=== PATIENT | female | born 1960 | race Caucasian/White ===

== ENCOUNTER 2020-11-22 16:40 | Outpatient (CLI) | payer MEDICARE, SELFPAY ==
--- NOTE | ~2020-11-22 | DEXA_ITS ---
Bone Density Report Name: Taty Hernandez Age: 60 Sex: Female Ethnicity: White Date of : 1960 Indication: osteopenia; monitoring treatment; prior fracture; cancer; hysterectomy; postmenopausal Referring Provider: HEATHER BURNHAM Study: Bone densitometry was performed. Exam Date: November 22, 2020 Accession number: [id number] Bone Density: Region BMD T-score Z-score Classification AP Spine (L1-L4) 0.751 -2.7 -1.3 Osteoporosis Femoral Neck (Left) 0.683 -1.5 -0.3 Osteopenia Total Hip (Left) 0.752 -1.6 -0.7 Osteopenia Total Hip Bilateral Avg 0.734 -1.8 -0.8 Osteopenia Femoral Neck (Right) 0.635 -1.9 -0.7 Osteopenia Total Hip (Right) 0.715 -1.9 -1.0 Osteopenia World Health Organization criteria for BMD impression classify patients as: Normal (T-score at or above -1.0), Osteopenia (T-score between -1.0 and -2.5), or Osteoporosis (T-score at or below -2.5). 10-year Fracture Risk: FRAX not reported because: Some T-score for Spine Total or Hip Total or Femoral Neck at or below -2.5 Treated for osteoporosis Previous Exams: Region Exam Age BMD T-score BMD Change BMD Change Date g/cm2 vs Baseline vs Previous AP Spine(L1-L4) 11/22/2020 60 0.751 -2.7 -0.076(-9.1%)* -0.059(-7.3%)# 10/02/2016 55 0.810 -2.2 -0.017(-2.0%)# -0.017(-2.0%)05/24/2012 51 0.827 -2.0 Total Hip(Left) 11/22/2020 60 0.752 -1.6 -0.071(-8.6%)* -0.054(-6.7%)# 10/02/2016 55 0.805 -1.1 -0.017(-2.1%)# -0.017(-2.1%)# 05/24/2012 51 0.822 -1.0 Total Hip(Right) 11/22/2020 60 0.715 -1.9 -0.075(-9.4%)* -0.036(-4.7%)# 10/02/2016 55 0.751 -1.6 -0.039(-4.9%)# -0.039(-4.9%)# 05/24/2012 51 0.789 -1.3 *Denotes significance at 95% confidence level, LSC for AP Spine = 0.022 g/cm2, LSC for Total Hip = 0.027 g/cm2 Clinical Information Provided by Patient: Has had a low trauma fracture Is being treated for osteoporosis Has used the following medications: Vitamin D, Calcium Has the following medical conditions: Cancer, Hysterectomy Patient maximum height was 70 Menopause Age: 30 Onset of menses at age 15 Number of children 0 Impression: The patient has established osteoporosis, based on the Total Spine T-score and the existence of a prior fracture. The patient has risk factors, including: previous fracture. No significant bone loss was observed. Discussion: PATIENT UNDER TREATMENT WITH NO SIGNIFICANT BMD LOSS SINCE LAST EXAM. In an untreated patient, BMD typi
== END 2020-11-22 16:41 | disposition home or self-care (01) ==
PROVIDERS: PCP Physician Assistant; Visit Provider Obstetrics & Gynecology Gynecology
DX: Z78.0 Asymptomatic menopausal state (principal); M85.89 Other specified disorders of bone density and structure, multiple sites; M81.0 Age-related osteoporosis without current pathological fracture
CPT/HCPCS: 77080

== ENCOUNTER 2020-12-26 12:29 | Outpatient (CLI) | payer MEDICARE, SELFPAY ==
--- NOTE | ~2020-12-26 | MM_ITS ---
EXAMINATION: MM screening [facility] BI w maile HISTORY: Screening mammogram TECHNIQUE: Craniocaudal and mediolateral oblique 3-D tomosynthesis images were obtained and synthetic 2-D images were generated. CAD analysis was submitted and interpreted. COMPARISON: 07/24/2018, 07/09/2016 BREAST PARENCHYMAL COMPOSITION: There are scattered areas of fibroglandular density. FINDINGS: There is no evidence of suspicious mass, calcification, or architectural distortion to sugg est malignancy in either breast. There has been no suspicious interval change. IMPRESSION: 1. No mammographic evidence of malignancy. 2. Recommend routine screening mammography in one year. BI-RADS Category 1: Negative Reviewed, dictated and finalized at location A. [facility]
== END 2020-12-26 12:30 | disposition home or self-care (01) ==
LOC: ANHIMG 12:31
PROVIDERS: PCP Family Medicine; Visit Provider Obstetrics & Gynecology Gynecology
DX: Z12.31 Encounter for screening mammogram for malignant neoplasm of breast (principal)
CPT/HCPCS: 77063; 77067